=== PATIENT | female | born 1935 | race Caucasian/White ===

== ENCOUNTER 2017-08-13 18:11 | Inpatient (IN) | payer MEDICARE, MEDICAID ==
[~2017-08-13 18:11] MED LIST: ISOVUE-370 76%-LOCM 1 ML ONE
--- NOTE | 2017-08-13 18:40 | RAD ---
PORTABLE CHEST: History: Chest pain x 2 hours. Comparison: 12-01-15 FINDINGS: Heart size is within normal limits for portable technique. There are atherosclerotic changes in the a rasta. The lungs are clear of infiltrates. There are no signs of failure. IMPRESSION: No active intrathoracic disease. POS: [facility]
[2017-08-13 19:03] LABS: #Eosinphils 0.1 thou/uL (0.0-0.7); #Lymphocytes 1.4 thou/uL (1.20-3.40); #Monocytes 0.7 thou/uL (0.11-0.59); #Neutrophils 11.6 thou/uL (1.40-6.50); %Basophils 0.2 % (0.0-1.0); %Eosinophils 1.1 % (0.0-10.0); %Monocytes 4.7 % (0.0-10.0); Hemoglobin 13.3 g/dL (12.0-16.0); Mean Corpuscular HGB CONC 33.6 g/dL (32.0-36.0); Mean Corpuscular Hemoglobin 31.6 pg (27.0-31.0); Mean Corpuscular Volume 94.1 fl (81.0-99.0); Mean Platelet Volume 8.6 fL (7.4-10.4); Platelet Count 141 thou/uL (130-400); RBC Distribution Width 11.7 % (11.5-14.5); Red Blood Cell (RBC) Count 4.22 mill/uL (4.20-5.40); White Blood Cell (WBC) Count 13.7 thou/uL (4.8-10.8)
[2017-08-13 19:24] LABS: ALT (SGPT) 38 U/L (8-55); AST (SGOT) 81 U/L (5-34); Albumin 3.9 g/dL (3.4-4.8); Alkaline Phosphatase 127 U/L (40-150); Anion Gap 16 mmol/L (10-20); BUN (Urea Nitrogen) 29 mg/dL (9.8-20.1); Bilirubin, Total 0.6 mg/dL (0.2-1.2); CK (CPK) 28 U/L (29-168); Calc. Creatinine Clearance 0 mL/min (70-130); Carbon Dioxide 21 mmol/L (23-31); Chloride 106 mmol/L (98-107); Estimated GFR-MDRD 37; Globulin 3.2 g/dL (2.4-3.5); Glucose 132 mg/dL (83-110); Lipase 22 U/L (8-78); Potassium 4.3 mmol/L (3.5-5.1); Protein, Total 7.1 g/dL (6.0-8.3); Sodium 139 mmol/L (136-145)
[2017-08-13 19:29] LABS: CKMB 0.5 ng/mL (0-6.6); Troponin I Less than 0.010 ng/mL (< 0.028)
--- NOTE | 2017-08-13 21:57 | CT ---
CT ANGIO OF CHEST AND ABDOMEN PERFORMED WITH INTRAVENOUS CONTRAST ENHANCEMENT WITH 3D RECONSTRUCTIONS : 08/13/17 HISTORY: Chest pain. The lungs are clear of any infiltrative process. No pulmonary nodules or pleural effusions are identi fied. Main pulmonary artery appears slightly dilated suggesting element of pulmonary artery hypertension. T here is fairly good opacification of the ascending aorta and aortic arch and a portion of the descend ing thoracic aorta without evidence of dissection. The contrast becomes more dilute distally. Dissect ion cannot be excluded, but there is no aneurysm present. No significant mediastinal or hilar adenopa thy. Small hiatal hernia is noted. CT ANGIO OF ABDOMEN PERFORMED WITH CONTRAST: Hypodensities within the liver are most likely small cysts. The spleen is within normal limits. The p ancreas and gallbladder regions are unremarkable. There is a low attenuation left adrenal mass, it has CT Hounsfield unit numbers of 52 which are indet erminate. In reviewing a previous 12/01/15 CT examination, the left adrenal lesion was present at that time and measures approximately 2.9 cm which is similar to the previous study. Bilateral renal cysts are again seen. No obstruction. No significant periaortic or mesenteric adenopathy. The abdominal ao rta is normal in caliber. IMPRESSION: 1. No evidence of aortic aneurysm. No signs of dissection of the ascending and proximal descendi ng thoracic aorta. The contrast becomes to dilute in the distal thoracic aorta and abdominal aorta to evaluate for dissection, but I see no signs of aneurysm. 2. Hepatic and renal cysts. 3. Stable left adrenal lesion, probably an adenoma. 4. Hiatal hernia. POS: [facility]
[2017-08-13 23:48] LABS: Troponin I Less than 0.010 ng/mL (< 0.028)
[2017-08-14] MEDS ORDERED: Ondansetron ODT 4 MG TAB SL PRN (00:06)
[2017-08-14] MEDS ORDERED: Ondansetron HCl/PF 4 MG/2 ML Vial IVP PRN ×3 (00:06→07:07)
[2017-08-14] MEDS ORDERED: Acetaminophen 325 MG TAB PO PRN ×2 (00:06→07:07)
[2017-08-14 00:28] VITALS: BMI 40.5
[2017-08-14 01:13] LABS: Troponin I Less than 0.010 ng/mL (< 0.028)
[2017-08-14] MEDS ORDERED: Nitroglycerin 0.4 MG TAB (25 Tab Bottle) SL PRN (07:07)
[2017-08-14] MEDS ORDERED: Calcium Carbonate 500 MG ChewTAB PO PRN (07:07)
[2017-08-14] MEDS ORDERED: hydrALAZINE 20 MG/ML VIAL SLOW IVP PRN (07:07)
[2017-08-14] MEDS ORDERED: cloNIDine 0.1 MG TAB PO PRN (07:07)
[2017-08-14] MEDS ORDERED: Senokot 8.6 MG TAB PO PRN ×2 (07:07)
[2017-08-14] MEDS ORDERED: Bisacodyl 5 MG TAB PO PRN ×2 (07:07)
[2017-08-14] MEDS ORDERED: Benzonatate 100 MG CAP PO PRN (07:07)
[2017-08-14] MEDS ORDERED: Mag-Al 1200 mg/1200 mg/30 ML UDCUP PO PRN (07:07)
[2017-08-14] MEDS ORDERED: Loratadine 10 MG TAB PO PRN (07:07)
[2017-08-14] MEDS ORDERED: Sodium Chloride 0.9% 1,000 ML IV SCH (07:15)
[2017-08-14] MEDS ORDERED: Non-Formulary Item 1 EACH (Folic Acid [Folic Acid] 0.4 MG) PO SCH (09:00)
[2017-08-14] MEDS ORDERED: Famotidine 20 MG TAB PO SCH (09:00)
[2017-08-14] MEDS ORDERED: Non-Formulary Item 1 EACH (Cyanocobalamin (Vitamin B-12) [Vitamin B-12] 500 MCG) PO SCH (09:00)
[2017-08-14] MEDS ORDERED: Losartan 25 MG TAB PO SCH (09:00)
[2017-08-14] MEDS ORDERED: Bumetanide 1 MG TAB PO SCH (09:00)
[2017-08-14] MEDS ORDERED: Non-Formulary Item 1 EACH (Losartan Potassium [Cozaar] 50 MG) PO SCH (09:00)
[2017-08-14] MEDS ORDERED: cefTRIAXone\\ROCEPHIN 1 GM in Sodium Chloride 0.9% 100 ML IVPB SCH (09:30)
[2017-08-14] MEDS: Aspirin 325 mg Enteric Coated Tablet PO SCH (09:56)
[2017-08-14] MEDS: Enoxaparin Sodium 40 MG/0.4 ML SYRINGE SC SCH (09:56)
--- NOTE | 2017-08-14 10:15 | HP ---
DATE OF ADMISSION: 08/14/2017 PRIMARY CARE PHYSICIAN: Dr. Tidwell. CHIEF COMPLAINT: Chest pain traveling down to her abdomen. HISTORY OF PRESENTING ILLNESS: Ms. Fuentes is a very pleasant 82-year-old female with past medical h istory of hypertension, chronic kidney disease, degenerative joint disease, chronic venous stasis, an xiety, depression, vitamin B12 deficiency and senile dementia who presented to the emergency room wit h above-mentioned complaint. History is mainly obtained by the patient herself and electronic medica l records have been reviewed. Ms. Fuentes resides at [facility] and reported that she has been having some urinary compl aints for the last week or so. Yesterday, she was started on some antibiotic for this. She had one episode of sharp chest pain located to the left upper sternum and it travelled under her left breast and that eventually traveled down to her abdomen in the suprapubic region. This pain was quite persi stent. It did not get relief until she was seen in the emergency room and received nitroglycerin and aspirin. She has never had these symptoms before. The symptoms did make her severely nauseated, bu t she did not really vomit. She denies any dizziness, lightheadedness, palpitations, any paresthesia s in the arm. There is jaw or claudication of back pain. She denies any diaphoresis. She denies an y recent illnesses. She has good appetite and denies any weight gain or weight loss. She denies any abdominal pain or diarrhea. She does have some dysuria, but no hematuria. Upon presentation to the ER, she was hemodynamically stable with blood pressure 135/41, pulse of 75, respirations 19, temperature 97.4 and oxygen saturation of room air. Her 12-lead EKG was rather unre markable without any acute changes. ST and T segments were normal. Chest x-ray was within normal li mits. She underwent a CT aortic dissection, which was negative for the same. Her lab work did show elevated WBCs at 13.7 with left shift of 84% neutrophils. Serum chemistry show s creatinine of 1.36, which seems to be baseline for her. Cardiac enzymes were trended and were nega tive x3. BNP was normal. At this time, she is now being admitted to rule out acute coronary syndrome and there is a concern fo r unstable angina. The family reported that she had a stress test done in the past and it was normal. CODE STATUS: FULL CODE discussed with the patient. PAST MEDICAL HISTORY: 1. Degenerative joint disease. 2. Senile dementia. 3. Chronic kidney disease stage 3. 4. Hypertension. 5. Urinary incontinence. 6. Anxiety and depression. 7. Vitamin B12 deficiency. 8. Senile dementia. 9. Chronic constipation. 10. Gait imbalance. 11. GERD. ALLERGIES: No known medication allergies. PAST SURGICAL HISTORY: 1. Hernia repair most recently in 08/2016. 2. Hysterectomy. SOCIAL HISTORY: She currently resides at [facility]. No history of drug, tobacco or alco hol abuse. CURRENT MEDICATIONS: As per the halfway records, Zofran as needed every 8 hours 4 mg p.o., Tums as needed, folic acid 0.4 mg daily, vitamin B12 500 mcg daily, Tylenol Extra Strength as needed, bum etanide 1 mg p.o. b.i.d., aspirin 81 mg daily, Cozaar 50 mg daily, Colace 100 mg daily, and melatonin 3 mg at bedtime. REVIEW OF SYSTEMS: The following complete review of systems was negative, unless otherwise mentioned in the HPI or below: Constitutional: Weight loss or gain, ability to conduct usual activities. Skin: Rash, itching. Eyes: Double vision, pain. ENT/Mouth: Nose bleeding, neck stiffness, pain, tenderness. Cardiovascular: Palpitations, dyspnea on exertion, orthopnea. Respiratory: Shortness of breath, wheezing, cough, hemoptysis, fever or night sweats. Gastrointestinal: Poor appetite, abdominal pain, heartburn, nausea, vomiting, constipation, or diarr hea. Genitourinary: Urgency, frequency, dysuria, nocturia. Musculoskeletal: Pain, swelling. Neurologic/Psychiatric: Anxiety, depression. Allergy/Immunologic: Skin rash, bleeding tendency. A 12-point review of systems was done and is negative except for those mentioned in the history and p hysical. FAMILY HISTORY: Significant for congestive heart failure in her mother, sister with diabetes as well as enlarged heart. PHYSICAL EXAMINATION: MOST RECENT VITAL SIGNS: Temperature 98.1, pulse of 77, respirations 18, saturating 97% on room air, and blood pressure 132/63. GENERAL: No acute distress, awake, alert, oriented x3. Her sisters are in the room. She is in no a cute distress. HEENT: Mucous membranes are slightly dry. No oropharyngeal exudate or erythema. Head is normocepha lic, atraumatic. Pupils are equal and reactive to light and accommodation. Extraocular movement int act. NECK: Supple without any lymphadenopathy, JVD or bruit. CHEST: Clear to auscultation without any wheezing, rales or rhonchi. It is nontender to palpation. CARDIOVASCULAR: Rate and rhythm is regular without any murmur, rubs or gallops. ABDOMEN: Soft and nondistended. Positive bowel sounds, no hepatosplenomegaly. She is mildly tender to palpation around the umbilical area in the suprapubic region. EXTREMITIES: Free of any cyanosis, clubbing, or edema. There is mild chronic venostasis changes wit h patchy erythema in lower extremities, which she reports is there for many years. NEUROLOGIC: Examination is nonfocal. PSYCHIATRIC: Normal affect. LABORATORY DATA AND IMAGING DATA: CBC shows WBC 13.7 with 84% neutrophils, otherwise unremarkable. Serum chemistry shows bicarbonate 21, BUN 29, creatinine 1.36, blood sugar 132, AST 81. Troponin les s than 0.010 x3 with normal CK-MB. BNP 57 and lipase 22. Chest x-ray by my review has no evidence t o suggest any acute cardiopulmonary abnormality. Twelve-lead EKG shows normal sinus rhythm by my rev iew without any acute ST or T-wave changes. IMPRESSION AND PLAN: 1. Chest pain, possibly unstable angina. The patient has multiple risk factors including hypertensi on and history of congestive heart failure and advanced age. She would need further risk stratificat ion. At this time, we will go ahead and obtain nuclear medicine stress test as her cardiac enzymes a re normal. She will be continued on a full dose aspirin for now and we will restart her home medicat ion of Cozaar and bumetanide. At this time, she does not appear to be in any fluid overload. She wi ll be admitted to telemetry unit for further monitoring. She is hemodynamically stable at this time. 2. Urinary tract infection, most likely suspected given the patient's symptoms. We will obtain urin alysis and culture, but start her on on empiric antibiotics meanwhile. I am not sure which antibioti c patient has received in the halfway. We will follow the final results and adjust antibiotic b ased on the culture and sensitivity results. 3. Dehydration. The patient does have slight metabolic acidosis and acute kidney insufficiency. We will start her on normal saline and monitor renal function. 4. Acute kidney insufficiency. The patient's baseline creatinine seems to be dwindling from1.30 or 1.40. At this time, she seems to be in mild acute kidney insufficiency due to dehydration. We will start her on normal saline and avoid any nephrotoxic medications. Monitor renal functions on a daily basis. 5. History of hypertension, currently well controlled. We will restart Cozaar at this time. 6. History of congestive heart failure. There is no cardiac imaging in the EMR at this time. We wi ll have the nuclear medicine stress test to assess the ejection fraction as well. Suspect diastolic dysfunction. Continue bumetanide and monitor I's and O's closely. 7. Senile dementia. The patient is at baseline. 8. Intentional tremors. These are noted on examination. The patient follows up with Neurology Dr. Vilchis for this and has been started on some medication that she does not remember. 9. Chronic venous stasis changes. 10. Code status: FULL CODE. Discussed with the patient. 11. Deep venous thrombosis and gastrointestinal prophylaxis and p.r.n. medication orders. DISPOSITION: The patient is being admitted for unstable angina. She needs further risk stratificati on. She also seems to have dehydration, acute renal insufficiency and UTI. Estimated length of stay at this time is 2-3 midnights. Further management will depend upon her clinical course.
[2017-08-14] MEDS: Cyanocobalamin (Vitamin B-12) 1,000 MCG TAB PO SCH (11:50)
[2017-08-14] MEDS: Docusate 100 MG CAP PO SCH (11:51)
[2017-08-14] MEDS: Folic Acid 1 MG TAB PO SCH (11:51)
[2017-08-14] MEDS: cefTRIAXone\\ROCEPHIN 1 GM, Syringe 0.4 ML in Sterile Water 9.6 ML SLOW IVP SCH (12:24)
[2017-08-14 12:38] LABS: Bilirubin Small (Negative); Blood, Urine Moderate (Negative); Clarity CLOUDY (Clear); Glucose, Urine (Dipstick) Negative (Negative); Leukocyte Large (Negative); Nitrite Negative (Negative); Protein, Urine (Dipstick) Negative (Neg-Trace); Specific Gravity, Urine 1.028 (1.002-1.036)
[2017-08-14 12:43] LABS: Bacteria/HPF None Seen HPF (None Seen); Hyaline Casts/LPF 0-3 HYALINE CAST LPF (0-3 Hyaline); RBC/HPF 21-50 HPF (0-3); Yeast-AUWi Flag 10.3 (0-25.0)
[2017-08-14 12:56] LABS: Renal Epithelial None Seen HPF (0-3); Transitional Epithelial NONE SEEN HPF (0-3)
[2017-08-14] MEDS: Sodium Chloride 0.9% 1,000 ML IV SCH (16:59)
[2017-08-14] MEDS ORDERED: Melatonin 3 MG TAB PO SCH (21:00)
[2017-08-15] MEDS: Sodium Chloride 0.9% 1,000 ML IV SCH ×2 (00:02→04:44)
[2017-08-15 05:43] LABS: #Eosinphils 0.6 thou/uL (0.0-0.7); #Lymphocytes 1.4 thou/uL (1.20-3.40); #Monocytes 0.6 thou/uL (0.11-0.59); #Neutrophils 7.2 thou/uL (1.40-6.50); %Basophils 0.4 % (0.0-1.0); %Eosinophils 5.9 % (0.0-10.0); %Lymphocytes 14.4 % (21.0-51.0); %Monocytes 5.7 % (0.0-10.0); %Neutrophils 73.5 % (42.0-75.0); Hemoglobin 11.2 g/dL (12.0-16.0); Mean Corpuscular HGB CONC 32.4 g/dL (32.0-36.0); Mean Corpuscular Hemoglobin 30.7 pg (27.0-31.0); Mean Corpuscular Volume 94.7 fl (81.0-99.0); Mean Platelet Volume 9.2 fL (7.4-10.4); Platelet Count 121 thou/uL (130-400); Red Blood Cell (RBC) Count 3.64 mill/uL (4.20-5.40); White Blood Cell (WBC) Count 9.7 thou/uL (4.8-10.8)
[2017-08-15 06:02] LABS: Anion Gap 9 mmol/L (10-20); BUN (Urea Nitrogen) 22 mg/dL (9.8-20.1); Calc. Creatinine Clearance 55 mL/min (70-130); Calcium 8.5 mg/dL (7.8-10.44); Carbon Dioxide 24 mmol/L (23-31); Chloride 108 mmol/L (98-107); Estimated GFR-MDRD 39; Glucose 92 mg/dL (83-110); Potassium 3.8 mmol/L (3.5-5.1); Sodium 137 mmol/L (136-145)
[2017-08-15] MEDS ORDERED: Sodium Chloride 0.9% 1,000 ML IV SCH (08:35)
--- NOTE | 2017-08-15 08:36 | PDOC.PN ---
- Subjective Encounter Start Date: 08/15/17 Encounter Start Time: 08:35 Subjective: no new complaints -: no more chest pain -: no AP/nausea - Objective Resuscitation Status: Resuscitation Status FULL:Full Resuscitation MAR Reviewed: Yes Vital Signs & Weight: Vital Signs (12 hours) Temp Pulse Resp BP Pulse Ox 08/15/17 04:35 97.3 F L 61 14 158/114 H 97 08/15/17 01:30 98.7 F 61 14 142/66 H 96 Weight Weight 228 lb I&O: 08/14/17 08/15/17 08/16/17 06:59 06:59 06:59 Intake Total 480 1870 Output Total 120 Balance 480 1750 Result Diagrams: 08/15/17 04:47 08/15/17 04:47 Additional Labs: Microbiology 08/14/17 12:30 Urine Straight Catheter Urine Culture - Preliminary NO GROWTH AT 24 HOURS Laboratory Tests 12/04/15 08/10/16 08/13/17 05:37 06:22 18:52 Creatinine 0.77 1.11 H 1.36 H B-Natriuretic Peptide 08/13/17 08/15/17 18:52 04:47 Creatinine 1.30 H B-Natriuretic Peptide 57.5 Phys Exam - Physical Examination Constitutional: NAD HEENT: PERRLA, moist MMs, sclera anicteric, oral pharynx no lesions Neck: no nodes, no JVD, supple, full ROM Respiratory: no wheezing, no rales, no rhonchi, clear to auscultation bilateral Cardiovascular: RRR, no significant murmur, no rub, gallop Gastrointestinal: soft, non-tender, no distention, positive bowel sounds Musculoskeletal: no edema, pulses present Neurological: non-focal, normal sensation, moves all 4 limbs Psychiatric: normal affect, A&O x 3 Skin: no rash Dx/Plan (1) Chest pain Code(s): R07.9 - CHEST PAIN, UNSPECIFIED Status: Acute (2) UTI (urinary tract infection) Status: Acute Qualifiers: Hematuria presence: without hematuria (3) Chronic kidney disease Code(s): N18.9 - CHRONIC KIDNEY DISEASE, UNSPECIFIED Status: Chronic Qualifiers: Chronic kidney disease stage: stage 3 (moderate) Qualified Code(s): N18.3 - Chronic kidney disease, stage 3 (moderate) (4) Hypertension Code(s): I10 - ESSENTIAL (PRIMARY) HYPERTENSION Status: Chronic (5) Obesity (BMI 30-39.9) Code(s): E66.9 - OBESITY, UNSPECIFIED Status: Chronic (6) Physical deconditioning Code(s): R53.81 - OTHER MALAISE Status: Chronic (7) Unstable angina Status: Suspected - Plan DVT proph w/SCDs pt refused stress test. will get as an OP -: DC back to [facility] as HD stable .No evidence of ACS on work up so far -: cont ABx as an OP.follow Cx results w PCP -: h/o ESBL * . Review of Systems - Review of Systems Constitutional: weakness, malaise Respiratory: negative: Cough, Dry, Shortness of Breath, Hemoptysis, SOB with Excertion, Pleuritic Pain, Sputum, Wheezing Cardiovascular: negative: chest pain, palpitations, orthopnea, paroxysmal nocturnal dyspnea, edema, light headedness, other Gastrointestinal: negative: Nausea, Vomiting, Abdominal Pain, Diarrhea, Constipation, Melena, Hematochezia, Other Genitourinary: negative: Dysuria, Frequency, Incontinence, Hematuria, Retention , Other Musculoskeletal: negative: Neck Pain, Shoulder Pain, Arm Pain, Back Pain, Hand Pain, Leg Pain, Foot Pain, Other Skin: negative: Rash, Lesions, Noe, Bruising, Other Neurological: negative: Weakness, Numbness, Incoordination, Change in Speech, Confusion, Seizures, Other - Medications/Allergies Allergies/Adverse Reactions: Allergies Allergy/AdvReac Type Severity Reaction Status Date / Time No Known Allergies Allergy Verified 08/14/17 00:10 Medications: Current Medications Acetaminophen (Tylenol) 650 mg PO Q4H PRN PRN Reason: Headache/Fever or Pain Al Hydroxide/Mg Hydroxide (Maalox) 30 ml PO Q6H PRN PRN Reason: Heartburn or Indigestion Aspirin (Ecotrin) 325 mg PO DAILY [facility] Last Admin: 08/14/17 09:56 Dose: 325 mg Benzonatate (Tessalon) 100 mg PO Q4H PRN PRN Reason: Cough Bisacodyl (Dulcolax) 10 mg PO DAILYPRN PRN PRN Reason: Constipation Calcium Carbonate (Tums) 1,000 mg PO Q4H PRN PRN Reason: Heartburn or Indigestion Clonidine (Catapres) 0.1 mg PO Q4H PRN PRN Reason: Systolic BP > 160 Cyanocobalamin (Vitamin B-12) 500 mcg PO DAILY [facility] Last Admin: 08/14/17 11:50 Dose: 500 mcg Docusate Sodium (Colace) 100 mg PO DAILY [facility] Last Admin: 08/14/17 11:51 Dose: 100 mg Enoxaparin Sodium (Lovenox) 40 mg SC 0900 [facility] Last Admin: 08/14/17 09:56 Dose: 40 mg Famotidine (Pepcid) 20 mg PO DAILY [facility] Folic Acid (Folvite) 0.5 mg PO DAILY [facility] Last Admin: 08/14/17 11:51 Dose: 0.5 mg Hydralazine HCl (Apresoline) 10 mg SLOW IVP Q4H PRN PRN Reason: Systolic BP > 170 Ceftriaxone Sodium 1 gm/ (Syringe 0.4 ml/ Sterile Water) 10 mls @ 120 mls/hr SLOW IVP 1000 [facility] Last Admin: 08/14/17 12:24 Dose: 10 mls Sodium Chloride (Normal Saline 0.9%) 1,000 mls @ 50 mls/hr IV .Q20H [facility] Loratadine (Claritin) 10 mg PO DAILYPRN PRN PRN Reason: Sinus Symptoms Last Admin: 08/14/17 11:51 Dose: 10 mg Losartan Potassium (Cozaar) 50 mg PO DAILY [facility] Melatonin (Melatonin) 3 mg PO HS [facility] Last Admin: 08/14/17 21:40 Dose: 3 mg Nitroglycerin (Nitrostat) 0.4 mg SL Q5MIN PRN PRN Reason: Chest Pain Ondansetron HCl (Zofran) 4 mg IVP Q6H PRN PRN Reason: Nausea/Vomiting Senna (Senokot) 2 tab PO HSPRN PRN PRN Reason: Constipation Sodium Chloride (Flush - Normal Saline) 10 ml IVF Q12HR [facility] Last Admin: 08/14/17 21:40 Dose: 10 ml Sodium Chloride (Flush - Normal Saline) 10 ml IVF PRN PRN PRN Reason: Saline Flush
[2017-08-15] MEDS ORDERED: Famotidine 20 MG TAB PO SCH (09:00)
[2017-08-15] MEDS ORDERED: Losartan 25 MG TAB PO SCH (09:00)
[2017-08-15 09:34] VITALS: TEMP 97.8
[2017-08-15] MEDS: cefTRIAXone\\ROCEPHIN 1 GM, Syringe 0.4 ML in Sterile Water 9.6 ML SLOW IVP SCH (10:10)
[2017-08-15] MEDS: Docusate 100 MG CAP PO SCH (10:51)
[2017-08-15] MEDS: Aspirin 325 mg Enteric Coated Tablet PO SCH (10:52)
[2017-08-15] MEDS: Cyanocobalamin (Vitamin B-12) 1,000 MCG TAB PO SCH (10:52)
[2017-08-15] MEDS: Folic Acid 1 MG TAB PO SCH (10:52)
[2017-08-15] MEDS: Enoxaparin Sodium 40 MG/0.4 ML SYRINGE SC SCH (10:53)
[2017-08-15 13:37] VITALS: BP 145/74
--- NOTE | 2017-08-16 01:54 | DIS ---
DATE OF ADMISSION: 08/14/2017 DATE OF DISCHARGE: 08/15/2017 CONDITION AT THE TIME OF DISCHARGE: Stable and improved. PRIMARY CARE PHYSICIAN: Kristina Sabillon M.D. DISCHARGE DISPOSITION: Back to [facility], where she resides as a permanent resident. DISCHARGE DIAGNOSES: 1. Chest pain, acute coronary syndrome ruled out by serial cardiac enzymes. 2. Unstable angina, ruled out. 3. Urinary tract infection. Cultures pending, chronic kidney disease. 4. Hypertension. 5. Morbid obesity. 6. Severe physical deconditioning. PROCEDURES DONE IN THE HOSPITAL: Chest x-ray, which was unremarkable. CT with aortic dissection protocol, which was negative for any dissection or there is no evidence of any consolidation either. A CT scan of the abdomen that was including the CT angio was unremarkable. DISCHARGE MEDICATIONS: New medications, levofloxacin 500 mg p.o. daily for 7 more days, Florastor 25 0 mg daily. Otherwise, resume home medications as per dictated in my history and physical. HISTORY OF PRESENTING ILLNESS: Ms. Fuentes is an 82-year-old female with past medical history of hyp ertension, senile dementia, chronic kidney disease, and GERD, who presented to the emergency room [facility] with complaints of chest pain traveling down to her abdomen. She was admitted as an A CS rule out patient. She was hemodynamically stable and normal EKG upon presentation. She did have elevated WBCs at 13.7 with some left shift and creatinine of 1.36. Cardiac enzymes were negative x3. BNP was normal. CT aortic dissection and chest x-ray was normal. Please see admission history and physical for further details. HOSPITAL COURSE: The patient was admitted and she remained hemodynamically stable throughout her hos pitalization. Nuclear medicine stress test was ordered, but it could not be done on the day of admis aleat as the patient's blood pressure was somewhat on the lower side. She was started on gentle IV fl uid hydration as she was suspected to have urinary tract infection. Her blood pressure responded kia y quickly and on the next day, the stress test was scheduled, but at this time the patient refused. She was not willing to stay n.p.o. anymore. I discussed her care with her as well as her family. It is clear that most likely her symptoms are coming from the urinary tract infection. She was treated with IV antibiotics in the ER. Her serial cardiac enzymes are normal. She has no arrhythmias on the telemetry and EKG is negative as well for any ST wave or T-wave changes. Likelihood of chest pain i s low at this time. I discussed this with them and they are agreeable that she will get the stress t est done as an outpatient at the earliest possibility. Test was ordered by myself on the discharge. She was seen and examined prior to discharge and is back to her baseline. Home health was resumed, kaylee garcia is getting at [facility]. All questions were answered. Please see hospitalist progr ess note from today's date for further detail including [id number] interaction.
== END 2017-08-15 13:39 | DRG 313 ==
LOC: ERS 18:11 → 2NO 23:00
PROVIDERS: ADMIT Internal Medicine; ATTEND Internal Medicine
DX: R07.89 Other chest pain (principal); N39.0 Urinary tract infection, site not specified; I13.0 Hypertensive heart and chronic kidney disease with heart failure and stage 1 through stage 4 chronic kidney disease, or unspecified chronic kidney disease; I24.9 Acute ischemic heart disease, unspecified; Z68.41 Body mass index [BMI] 40.0-44.9, adult; F32.9 Major depressive disorder, single episode, unspecified; F41.9 Anxiety disorder, unspecified; F03.90 Unspecified dementia, unspecified severity, without behavioral disturbance, psychotic disturbance, mood disturbance, and anxiety; I87.8 Other specified disorders of veins; E53.8 Deficiency of other specified B group vitamins; N18.3 Chronic kidney disease, stage 3 (moderate); K59.09 Other constipation; K21.9 Gastro-esophageal reflux disease without esophagitis; I50.9 Heart failure, unspecified; E86.0 Dehydration; N28.9 Disorder of kidney and ureter, unspecified; E66.01 Morbid (severe) obesity due to excess calories
CPT/HCPCS: 36415; 71045; 71275; 80048; 80053; 81001; 82553; 83690; 83880; 84484; 85025; 87086; 93005; A4216; A4353; G8987-GO-CM; G8988-GO-CM; G8989-GO-CM; J0696; J1650